=== PATIENT | male | born 1995 | race Caucasian/White ===

== ENCOUNTER → 2017-04-10 | Outpatient (CLI) | payer BC ==
[~2017-04-10] MED LIST: NO HOME MEDICATIONS
== END ==
LOC: COL.RAD 08:09
DX: S43.492A Other sprain of left shoulder joint, initial encounter (principal); M94.8X1 Other specified disorders of cartilage, shoulder; M75.82 Other shoulder lesions, left shoulder; M25.412 Effusion, left shoulder; M19.012 Primary osteoarthritis, left shoulder
CPT/HCPCS: A9585; Q9967

== ENCOUNTER 2019-01-24 20:06 | Emergency (ER) | payer BC ==
[~2019-01-24] VITALS: Ht 190.5 cm; Wt 86.4 kg
[2019-01-24 20:13] VITALS: BP 104/56; TEMP 97
[2019-01-24 21:22] VITALS: PULSE 53
== END 2019-01-24 21:22 | disposition home or self-care (01) ==
LOC: COL.ER 20:06
DX: S09.90XA Unspecified injury of head, initial encounter (principal); S52.121A Displaced fracture of head of right radius, initial encounter for closed fracture; V19.9XXA Pedal cyclist (driver) (passenger) injured in unspecified traffic accident, initial encounter